=== PATIENT | male | born 1970 | race Caucasian/White ===

== ENCOUNTER → 2019-07-02 | Outpatient (CLI) | payer OTHER ==
[~2019-07-02] MED LIST: LORTAB 5/500 501 TAB PO; NAPROSYN500 MG PO; NO HOME MEDICATIONS
== END ==
LOC: COL.RAD 07:23
DX: S49.91XD Unspecified injury of right shoulder and upper arm, subsequent encounter (principal); M75.112 Incomplete rotator cuff tear or rupture of left shoulder, not specified as traumatic; M75.121 Complete rotator cuff tear or rupture of right shoulder, not specified as traumatic

== ENCOUNTER → 2023-03-04 | Outpatient (CLI) | payer BC | LOC: COL.RAD 12:32 | DX: J32.0 Chronic maxillary sinusitis (principal) ==